=== PATIENT | female | born 1950 | race Caucasian/White ===

== ENCOUNTER 2018-09-22 13:03 | Outpatient (CLI) | payer OTHER ==
[2018-09-22 14:33] LABS: BILIRUBIN,URINE NEGATIVE (NEGATIVE); BLOOD, URINE NEGATIVE (NEGATIVE); CLARITY/URINE CLEAR (CLEAR); COLOR,URINE YELLOW (YELLOW); GLUCOSE,URINE NEGATIVE (NEGATIVE); KETONES,URINE NEGATIVE (NEGATIVE); LEUKOCYTE ESTERASE ,URINE 3+ (NEGATIVE); NITRITE, URINE NEGATIVE (NEGATIVE); PH,URINE 5.5 (5.0-8.0); PROTEIN URINE NEGATIVE (NEGATIVE); UROBILINOGEN,URINE 0.2 (0.2-1.0)
[2018-09-22 14:34] LABS: BASOPHILS # (AUTO) 0.1 K/uL (0.0-0.2); BASOPHILS % (AUTO) 0.7 % (0.0-2.0); EOSINOPHILS # (AUTO) 0.2 K/uL (0.0-0.4); EOSINOPHILS % (AUTO) 2.2 % (0.0-4.0); HEMATOCRIT 44.8 % (36-48); HEMOGLOBIN 15.2 g/dL (12.0-16.0); LYMPHOCYTES # (AUTO) 2.4 K/uL (1.0-5.5); LYMPHOCYTES % (AUTO) 26.4 % (20.5-51.5); MEAN CORPUSCULAR HEMOGLOBIN 31 pg (27-31); MEAN CORPUSCULAR HGB CONC 34 % (32-36); MEAN CORPUSCULAR VOLUME 92 fL (79.0-98.0); MONOCYTES # (AUTO) 0.5 K/uL (0.0-1.0); NEUTROPHILS # (AUTO) 5.9 K/uL (1.8-7.7); NEUTROPHILS % (AUTO) 64.7 % (40.0-70.0); PLATELET COUNT (AUTO) 294 K/uL (130-430); RED CELL DISTRIBUTION WIDTH 13.1 % (9.0-15.0); WHITE BLOOD COUNT (AUTO) 9.1 K/uL (4.8-10.8)
[2018-09-22 14:46] LABS: BACTERIA,URINE FEW /HPF (None Seen); HYALINE CASTS, URINE 0-10 /LPF (None Seen); RBC,URINE 0-3 /HPF (0-3); WBC,URINE 20-50 /HPF (0-3)
[2018-09-22 15:06] LABS: ALBUMIN 3.8 g/dL (3.4-4.8); CALCIUM 9.7 mg/dL (8.4-11.0); CREATININE 0.81 mg/dL (0.55-1.30); POTASSIUM 3.4 mmol/L (3.5-5.1); THYROID STIMULATING HORMONE 1.73 uIu/mL (0.34-4.82); TOTAL BILIRUBIN 0.6 mg/dL (0.0-1.0)
[2018-09-23 08:22] LABS: T4 (THYROXINE) 7.6 ug/dL (4.5-12.0)
[2018-09-23 13:33] LABS: HEMOGLOBIN A1C 5.9 % (4.8-5.6)
[2018-09-23 14:20] LABS: CREATININE, URINE 53.4 mg/dL; MICROALBUMIN URINE RANDOM 15.8 ug/ml (NOT ESTABLISHED)
[2018-09-23 14:21] LABS: MICROALBUMIN/CREAT RATIO, UR 29.6 MG/G CRE (0.0-30.0)
== END 2018-09-22 21:00 | disposition home or self-care (01) ==
LOC: SMA 13:03
PROVIDERS: ATTEND Family Medicine
DX: Z00.00 Encounter for general adult medical examination without abnormal findings (principal); R92.2 Inconclusive mammogram; Z13.1 Encounter for screening for diabetes mellitus; Z13.0 Encounter for screening for diseases of the blood and blood-forming organs and certain disorders involving the immune mechanism; Z13.220 Encounter for screening for lipoid disorders; Z13.9 Encounter for screening, unspecified; R00.9 Unspecified abnormalities of heart beat; Z12.11 Encounter for screening for malignant neoplasm of colon; E55.9 Vitamin D deficiency, unspecified; R73.9 Hyperglycemia, unspecified; E78.5 Hyperlipidemia, unspecified; E07.9 Disorder of thyroid, unspecified
CPT/HCPCS: 36415; 77067; 80053; 80061; 81000-TC; 82043; 82306; 82570; 83036; 84436; 84443-TC; 84480; 85025

== ENCOUNTER 2018-09-25 11:52 | Outpatient (CLI) | payer OTHER | END 2018-09-25 20:49 | disposition home or self-care (01) | LOC: SLB 11:52 | PROVIDERS: ATTEND Family Medicine | DX: Z12.11 Encounter for screening for malignant neoplasm of colon (principal); Z13.29 Encounter for screening for other suspected endocrine disorder; Z13.0 Encounter for screening for diseases of the blood and blood-forming organs and certain disorders involving the immune mechanism; Z13.220 Encounter for screening for lipoid disorders; Z13.9 Encounter for screening, unspecified; E55.9 Vitamin D deficiency, unspecified; E78.5 Hyperlipidemia, unspecified; Z79.899 Other long term (current) drug therapy | CPT/HCPCS: 82272 ==

== ENCOUNTER 2018-12-25 10:31 | Outpatient (CLI) | payer OTHER | END 2018-12-26 20:21 | disposition home or self-care (01) | LOC: SCA 10:31 | PROVIDERS: ATTEND Family Medicine | DX: I07.1 Rheumatic tricuspid insufficiency (principal); I34.0 Nonrheumatic mitral (valve) insufficiency | CPT/HCPCS: 93306 ==

== ENCOUNTER 2019-09-22 14:35 | Emergency (ER) | payer OTHER ==
[~2019-09-22] VITALS: Ht 160 cm; Wt 90.7 kg
[2019-09-22 14:35] VITALS: BP_SYST 120
--- NOTE | 2019-09-22 14:35 | NUR ---
BROUGHT BACK TO BED #4 AND TRIAGED. REPORT GIVEN TO DANIKA
--- NOTE | 2019-09-22 14:42 | NUR ---
Patient to ER bed 04 to gown for evaluation. Side rails up.
--- NOTE | 2019-09-22 14:44 | NUR ---
Pt brought by self, A&Ox4, pt presents to ER with recent UTI, Pt states she was given antibiotics for UTI but she does not remember the name or how to get prescriptions, pt amulates, respirations even and unlabored, cap refill <3, afebrile, will cont to monitor.
--- NOTE | 2019-09-22 14:55 | NUR ---
ER Dr. TERRY at bedside examining patient.
--- NOTE | 2019-09-22 15:40 | NUR ---
ASSUMED CARE OF PT. PT C/O URINARY PROBLEMS. PT RESTING QUIETLY IN NO ACUTE DISTRESS.
[2019-09-22 15:42] LABS: BILIRUBIN,URINE NEGATIVE (NEGATIVE); BLOOD, URINE NEGATIVE (NEGATIVE); COLOR,URINE YELLOW (YELLOW); GLUCOSE,URINE NEGATIVE (NEGATIVE); KETONES,URINE TRACE (NEGATIVE); LEUKOCYTE ESTERASE ,URINE 2+ (NEGATIVE); NITRITE, URINE NEGATIVE (NEGATIVE); PH,URINE 5.5 (5.0-8.0); PROTEIN URINE TRACE (NEGATIVE); UROBILINOGEN,URINE 0.2 (0.2-1.0)
[2019-09-22 15:55] LABS: CLARITY/URINE HAZY (CLEAR)
[2019-09-22 16:01] LABS: BASOPHILS % (AUTO) 0.4 % (0.0-2.0); EOSINOPHILS # (AUTO) 0.1 K/uL (0.0-0.4); EOSINOPHILS % (AUTO) 1.1 % (0.0-4.0); HEMATOCRIT 51.3 % (36-48); HEMOGLOBIN 16.7 g/dL (12.0-16.0); LYMPHOCYTES # (AUTO) 1.7 K/uL (1.0-5.5); LYMPHOCYTES % (AUTO) 17.4 % (20.5-51.5); MEAN CORPUSCULAR HEMOGLOBIN 31 pg (27-31); MEAN CORPUSCULAR HGB CONC 33 % (32-36); MEAN CORPUSCULAR VOLUME 93 fL (79.0-98.0); MONOCYTES # (AUTO) 0.6 K/uL (0.0-1.0); MONOCYTES % (AUTO) 5.7 % (1.7-9.3); NEUTROPHILS # (AUTO) 7.5 K/uL (1.8-7.7); NEUTROPHILS % (AUTO) 75.4 % (40.0-70.0); PLATELET COUNT (AUTO) 313 K/uL (130-430); RED BLOOD CELL COUNT(AUTO) 5.49 MIL/uL (4.2-6.2); WHITE BLOOD COUNT (AUTO) 9.9 K/uL (4.8-10.8)
[2019-09-22 16:20] LABS: ANION GAP 7 (5-15); CALCIUM 9.9 mg/dL (8.4-11.0); CHLORIDE 100 mmol/L (98-107); CREATININE 0.99 mg/dL (0.55-1.30); GLUCOSE 158 mg/dL (70-99); POTASSIUM 4.4 mmol/L (3.5-5.1); SODIUM SERUM 137 mmol/L (136-145); UREA NITROGEN, BLOOD 21 mg/dL (8-21)
[2019-09-22 16:33] LABS: BACTERIA,URINE FEW /HPF (None Seen); RBC,URINE 0-3 /HPF (0-3)
[2019-09-22 16:35] LABS: MUCUS,URINE 1+ /LPF (None Seen); URINE AMORPHOUS URATE 2+ /HPF (None Seen)
[2019-09-22 16:37] LABS: ALANINE AMINOTRANSFERASE 96 U/L (12-78); ALBUMIN 3.5 g/dL (3.4-4.8); AMYLASE 26 U/L (0-100); ASPARTATE AMINOTRANSFERASE 84 U/L (10-37); LIPASE 118 U/L (73-393); TOTAL BILIRUBIN 0.2 mg/dL (0.0-1.0)
[2019-09-22 17:29] VITALS: BP_SYST 120
--- NOTE | 2019-09-22 17:32 | NUR ---
Patient given written and verbal discharge instructions and verbalizes understanding. DR. MARA WING MD discussed with patient the results and treatment provided. Patient in stable condition. ID arm band removed. Rx of MACROBID AND PYRIDIUM given. Patient educated on pain management and to follow up with PMD. Pain Scale 0/10. Opportunity for questions provided and answered. Medication side effect fact sheet provided.
== END 2019-09-22 17:32 | disposition home or self-care (01) ==
LOC: SED 14:35
DX: N39.0 Urinary tract infection, site not specified (principal); I10 Essential (primary) hypertension; E78.00 Pure hypercholesterolemia, unspecified; Z86.73 Personal history of transient ischemic attack (TIA), and cerebral infarction without residual deficits
CPT/HCPCS: 36415; 80053; 81000-TC; 82150-TC; 83605; 83690-TC; 85025; 85610-TC; 85730-TC; 87086; 99283

== ENCOUNTER 2019-10-01 11:17 | Emergency (ER) | payer OTHER ==
[~2019-10-01] VITALS: Ht 167.6 cm; Wt 90.7 kg
--- NOTE | 2019-10-01 11:25 | NUR ---
Patient to ER bed 03 to gown for evaluation. Side rails up.
[2019-10-01 11:26] VITALS: BP_SYST 129
--- NOTE | 2019-10-01 11:32 | NUR ---
DR. SAL AT BEDSIDE
--- NOTE | 2019-10-01 11:35 | NUR ---
PT PRESENTS WITH FEELING OF "HOT URINE" WITH SOME PAIN UPON URINATION AND FREQUENCY. RECENT UTI. LIVES AT A [facility]. AOX3, V/S STABLE
--- NOTE | 2019-10-01 11:40 | NUR ---
URINE COLLECTED AND TAKEN TO LAB
[2019-10-01 12:00] LABS: BILIRUBIN,URINE NEGATIVE (NEGATIVE); BLOOD, URINE NEGATIVE (NEGATIVE); CLARITY/URINE SL CLOUDY (CLEAR); COLOR,URINE YELLOW (YELLOW); GLUCOSE,URINE NEGATIVE (NEGATIVE); KETONES,URINE NEGATIVE (NEGATIVE); LEUKOCYTE ESTERASE ,URINE 2+ (NEGATIVE); NITRITE, URINE NEGATIVE (NEGATIVE); PH,URINE 5.5 (5.0-8.0); PROTEIN URINE NEGATIVE (NEGATIVE); UROBILINOGEN,URINE 0.2 (0.2-1.0)
[2019-10-01 12:22] LABS: BASOPHILS % (AUTO) 0.4 % (0.0-2.0); EOSINOPHILS # (AUTO) 0.1 K/uL (0.0-0.4); EOSINOPHILS % (AUTO) 0.5 % (0.0-4.0); HEMATOCRIT 51.6 % (36-48); HEMOGLOBIN 16.9 g/dL (12.0-16.0); LYMPHOCYTES % (AUTO) 18.8 % (20.5-51.5); MEAN CORPUSCULAR HEMOGLOBIN 30 pg (27-31); MEAN CORPUSCULAR HGB CONC 33 % (32-36); MEAN CORPUSCULAR VOLUME 92 fL (79.0-98.0); MONOCYTES # (AUTO) 0.6 K/uL (0.0-1.0); MONOCYTES % (AUTO) 5.6 % (1.7-9.3); NEUTROPHILS # (AUTO) 8.1 K/uL (1.8-7.7); NEUTROPHILS % (AUTO) 74.7 % (40.0-70.0); PLATELET COUNT (AUTO) 308 K/uL (130-430); WHITE BLOOD COUNT (AUTO) 10.9 K/uL (4.8-10.8)
[2019-10-01 12:25] LABS: ANION GAP 7 (5-15); CALCIUM 9.7 mg/dL (8.4-11.0); CHLORIDE 102 mmol/L (98-107); CREATININE 0.88 mg/dL (0.55-1.30); GLUCOSE 124 mg/dL (70-99); SODIUM SERUM 139 mmol/L (136-145); UREA NITROGEN, BLOOD 15 mg/dL (8-21)
[2019-10-01 12:31] LABS: ALANINE AMINOTRANSFERASE 83 U/L (12-78); ALBUMIN 3.8 g/dL (3.4-4.8); ASPARTATE AMINOTRANSFERASE 79 U/L (10-37); TOTAL BILIRUBIN 0.4 mg/dL (0.0-1.0)
[2019-10-01 12:32] LABS: BACTERIA,URINE None Seen /HPF (None Seen); RBC,URINE NONE SEEN /HPF (0-3); TRICHOMONAS,URINE None Seen /HPF (None Seen); YEAST,URINE None Seen /HPF (None Seen)
--- NOTE | 2019-10-01 13:04 | NUR ---
Patient given written and verbal discharge instructions and verbalizes understanding. ER MD discussed with patient the results and treatment provided. Patient in stable condition. ID arm band removed. Rx of KEFLEX given. Patient educated on pain management and to follow up with PMD. Pain Scale 0/10.Opportunity for questions provided and answered. Medication side effect fact sheet provided.
[2019-10-01 13:06] VITALS: BP_SYST 129
== END 2019-10-01 13:04 | disposition home or self-care (01) ==
LOC: SED 11:17
DX: N39.0 Urinary tract infection, site not specified (principal); I10 Essential (primary) hypertension; E78.00 Pure hypercholesterolemia, unspecified; Z86.73 Personal history of transient ischemic attack (TIA), and cerebral infarction without residual deficits
CPT/HCPCS: 36415; 80053; 81000-TC; 85025; 99283

== ENCOUNTER 2022-09-17 15:53 | Inpatient (IN) | payer OTHER ==
[~2022-09-17] VITALS: Ht 167.6 cm; Wt 52.2 kg
[2022-09-17 16:08] VITALS: BP_SYST 90; PULSE 135; RESP 22; TEMP 97.7; O2SAT 95
[2022-09-17] MEDS ORDERED: NS 1000 ML IV.SOLN IV ONE (16:30)
[2022-09-17 17:51] LABS: HEMATOCRIT 43.1 % (36-48); HEMOGLOBIN 14.3 g/dL (12.0-16.0); LYMPHOCYTES # (AUTO) 0.5 K/uL (1.0-5.5); LYMPHOCYTES % (AUTO) 7.2 % (20.5-51.5); MEAN CORPUSCULAR HEMOGLOBIN 30 pg (27-31); MEAN CORPUSCULAR HGB CONC 33 % (32-36); MEAN CORPUSCULAR VOLUME 92 fL (79.0-98.0); MONOCYTES # (AUTO) 0.7 K/uL (0.0-1.0); MONOCYTES % (AUTO) 9.4 % (1.7-9.3); NEUTROPHILS # (AUTO) 5.9 K/uL (1.8-7.7); NEUTROPHILS % (AUTO) 83.4 % (40.0-70.0); PLATELET COUNT (AUTO) 151 K/uL (130-430); RED BLOOD CELL COUNT(AUTO) 4.71 MIL/uL (4.2-6.2); RED CELL DISTRIBUTION WIDTH 12.9 % (9.0-15.0); WHITE BLOOD COUNT (AUTO) 7.1 K/uL (4.8-10.8)
[2022-09-17 18:21] LABS: ALANINE AMINOTRANSFERASE 13 U/L (12-78); ALBUMIN 3.2 g/dL (3.4-4.8); ASPARTATE AMINOTRANSFERASE 39 U/L (10-37); GLUCOSE 167 mg/dL (74-106); TOTAL BILIRUBIN 2.5 mg/dL (0.0-1.0); TOTAL PROTEIN, SERUM 6.4 g/dL (6.4-8.3); UREA NITROGEN, BLOOD 76 mg/dL (8-21)
[2022-09-17] MEDS ORDERED: ASPIRIN 81 MG TABLET(ECOTRIN) PO ONE (19:00)
[2022-09-17] MEDS ORDERED: NACL 0.9% 2,000 ML IV ONE (19:30)
[2022-09-17 19:52] LABS: INR 1.1 (0.8-1.2); PROTHROMBIN TIME 11.3 SECS (9.5-12.5)
[2022-09-17 20:15] LABS: POTASSIUM 4.7 mmol/L (3.5-5.1); SODIUM SERUM 143 mmol/L (136-145)
[2022-09-17 20:16] LABS: CHLORIDE 106 mmol/L (98-107)
[2022-09-17 20:22] LABS: ANION GAP 14 (5-15); CARBON DIOXIDE 23 mmol/L (23-29)
[2022-09-17] MEDS: D5/0.45 NS 1,000 ML IV SCH (22:48)
[2022-09-17 23:59] LABS: BILIRUBIN,URINE 3+ (NEGATIVE); BLOOD, URINE NEGATIVE (NEGATIVE); GLUCOSE,URINE NEGATIVE (NEGATIVE); KETONES,URINE 1+ (NEGATIVE); LEUKOCYTE ESTERASE ,URINE NEGATIVE (NEGATIVE); NITRITE, URINE POSITIVE (NEGATIVE); PH,URINE 6.5 (5.0-8.0); PROTEIN URINE 2+ (NEGATIVE)
[2022-09-18] MEDS: PANTOPRAZOLE SODIUM 40 MG/VIAL (PROTONIX) IVP SCH ×3 (00:30→21:59)
[2022-09-18 00:32] LABS: CLARITY/URINE SLIGHTLY CLOUDY (CLEAR); COLOR,URINE AMBER (YELLOW)
[2022-09-18 00:48] LABS: BACTERIA,URINE None Seen /HPF (None Seen); RBC,URINE 0-3 /HPF (0-3); WBC,URINE 0-3 /HPF (0-3)
[2022-09-18] MEDS ORDERED: OLAN5TAB3 PO (01:46)
[2022-09-18] MEDS ORDERED: ATOR10TA68 PO (01:46)
[2022-09-18] MEDS ORDERED: AMLO-138 (01:46)
[2022-09-18] MEDS ORDERED: FURO20TA4 PO (01:46)
[2022-09-18] MEDS ORDERED: METF-1069 PO (01:46)
[2022-09-18] MEDS: D5/0.45 NS 1,000 ML IV SCH ×2 (10:59→18:14)
[2022-09-18 11:57] VITALS: BP_SYST 120; PULSE 103; RESP 18; TEMP 98.3; O2SAT 100
[2022-09-18 12:00] VITALS: BP_SYST 132; PULSE 100; RESP 18; TEMP 98
[2022-09-18] MEDS ORDERED: AZTREONAM 1 GM in NS 50 ML IV ONE (12:00)
[2022-09-18 16:00] VITALS: BP_SYST 114; PULSE 94; RESP 18; TEMP 97.8; O2SAT 100
[2022-09-18] MEDS ORDERED: BISACODYL 5 MG TABLET.DR (DULCOLAX) PO ONE (17:00)
[2022-09-18] MEDS ORDERED: GOLYTELY / COLYTE SOLUTION 4 LITERS PO ONE (18:00)
[2022-09-18] MEDS ORDERED: ONDANSETRON HCL 4 MG/2 ML VIAL IVP PRN (18:30)
[2022-09-18] MEDS ORDERED: LORazepam 2 MG/ML VIAL IVP PRN (18:30)
[2022-09-18 20:00] VITALS: BP_SYST 106; PULSE 112; RESP 17; TEMP 97.4; O2SAT 97
[2022-09-18] MEDS: AZTREONAM 1 GM in NS 50 ML IV SCH (21:58)
[2022-09-19] VITALS (7 sets, daily range): BP systolic 82–110; PULSE 101–110; RESP 17–18; TEMP 97.4–98.3; O2SAT 95–99
[2022-09-19] MEDS: INSULIN REGULAR, HUMAN 100 UNITS/ML, 3 ML VIAL (humuLIN R) SUBCUT PRN ×2 (00:04→05:59)
[2022-09-19] MEDS: D5/0.45 NS 1,000 ML IV SCH ×2 (06:00→17:28)
[2022-09-19 06:21] LABS: BASOPHILS % (AUTO) 0.1 % (0.0-2.0); HEMATOCRIT 27.3 % (36-48); LYMPHOCYTES % (AUTO) 14.1 % (20.5-51.5); MEAN CORPUSCULAR HEMOGLOBIN 30 pg (27-31); MEAN CORPUSCULAR HGB CONC 33 % (32-36); MEAN CORPUSCULAR VOLUME 91 fL (79.0-98.0); MONOCYTES # (AUTO) 0.4 K/uL (0.0-1.0); MONOCYTES % (AUTO) 6.5 % (1.7-9.3); NEUTROPHILS # (AUTO) 5.4 K/uL (1.8-7.7); NEUTROPHILS % (AUTO) 79.3 % (40.0-70.0); PLATELET COUNT (AUTO) 88 K/uL (130-430); RED CELL DISTRIBUTION WIDTH 12.4 % (9.0-15.0); WHITE BLOOD COUNT (AUTO) 6.8 K/uL (4.8-10.8)
[2022-09-19 06:32] LABS: ANION GAP 9 (5-15); CARBON DIOXIDE 24 mmol/L (23-29); CHLORIDE 110 mmol/L (98-107); GLUCOSE 190 mg/dL (74-106); SODIUM SERUM 143 mmol/L (136-145)
[2022-09-19 06:33] LABS: ALANINE AMINOTRANSFERASE 4 U/L (12-78); ALBUMIN 1.9 g/dL (3.4-4.8); ASPARTATE AMINOTRANSFERASE 12 U/L (10-37); LIPASE 111 U/L (73-393); PHOSPHORUS 2.1 mg/dL (2.7-4.5); TOTAL BILIRUBIN 0.6 mg/dL (0.0-1.0); UREA NITROGEN, BLOOD 42 mg/dL (8-21)
[2022-09-19 06:41] LABS: CALCIUM 6.7 mg/dL (8.4-11.0); POTASSIUM 2.9 mmol/L (3.5-5.1)
[2022-09-19 06:56] LABS: INR 1.1 (0.8-1.2); PROTHROMBIN TIME 11.6 SECS (9.5-12.5)
[2022-09-19] MEDS: AZTREONAM 1 GM in NS 50 ML IV SCH ×2 (08:38→21:51)
[2022-09-19] MEDS: PANTOPRAZOLE SODIUM 40 MG/VIAL (PROTONIX) IVP SCH ×2 (08:38→21:51)
[2022-09-19] MEDS ORDERED: POTASSIUM CHLORIDE 40 MEQ in NS 250 ML IV ONE (09:00)
[2022-09-19] MEDS: KCL 20 mEq in 100 mL (PREMIX) 100 ML IV SCH ×2 (10:10→12:36)
[2022-09-19] MEDS ORDERED: NS 500 ML IV ONE (11:30)
[2022-09-20 02:50] VITALS: BP_SYST 106; PULSE 101; RESP 16; TEMP 97.7; O2SAT 97
[2022-09-20 05:00] LABS: EOSINOPHILS % (AUTO) 0.1 % (0.0-4.0); HEMATOCRIT 22.6 % (36-48); HEMOGLOBIN 7.6 g/dL (12.0-16.0); LYMPHOCYTES # (AUTO) 1.4 K/uL (1.0-5.5); LYMPHOCYTES % (AUTO) 21.8 % (20.5-51.5); MEAN CORPUSCULAR HEMOGLOBIN 30 pg (27-31); MEAN CORPUSCULAR HGB CONC 34 % (32-36); MEAN CORPUSCULAR VOLUME 90 fL (79.0-98.0); MONOCYTES # (AUTO) 0.3 K/uL (0.0-1.0); MONOCYTES % (AUTO) 5.3 % (1.7-9.3); NEUTROPHILS # (AUTO) 4.6 K/uL (1.8-7.7); NEUTROPHILS % (AUTO) 72.8 % (40.0-70.0); PLATELET COUNT (AUTO) 62 K/uL (130-430); RED BLOOD CELL COUNT(AUTO) 2.51 MIL/uL (4.2-6.2); RED CELL DISTRIBUTION WIDTH 12.7 % (9.0-15.0); WHITE BLOOD COUNT (AUTO) 6.4 K/uL (4.8-10.8)
[2022-09-20 05:14] LABS: ERYTHROCYTE SEDIMENTATION RATE 1 MM/HR (0-20)
[2022-09-20 05:47] LABS: ALANINE AMINOTRANSFERASE 3 U/L (12-78); ALBUMIN 1.6 g/dL (3.4-4.8); ANION GAP 6 (5-15); ASPARTATE AMINOTRANSFERASE 9 U/L (10-37); CARBON DIOXIDE 25 mmol/L (23-29); CHLORIDE 114 mmol/L (98-107); CREATININE 0.69 mg/dL (0.55-1.30); GLUCOSE 146 mg/dL (74-106); PHOSPHORUS 1.8 mg/dL (2.7-4.5); SODIUM SERUM 145 mmol/L (136-145); TOTAL BILIRUBIN 0.5 mg/dL (0.0-1.0); TOTAL PROTEIN, SERUM 3.7 g/dL (6.4-8.3); UREA NITROGEN, BLOOD 28 mg/dL (8-21)
[2022-09-20 05:51] LABS: CALCIUM 6.6 mg/dL (8.4-11.0); POTASSIUM 2.9 mmol/L (3.5-5.1)
[2022-09-20] MEDS ORDERED: CALCIUM GLUCONATE 1 GM/10 ML VIAL IVP ONE (06:30)
[2022-09-20] MEDS ORDERED: POTASSIUM CHLORIDE 40 MEQ in NS 250 ML IV ONE (06:30)
[2022-09-20] MEDS ORDERED: NS IV ONE (07:15)
[2022-09-20] MEDS ORDERED: CALCIUM GLUCONATE IV ONE (07:15)
[2022-09-20 08:00] VITALS: O2SAT 97
[2022-09-20 08:06] LABS: FERRITIN 1156 ng/mL (15-150)
[2022-09-20] MEDS: AZTREONAM 1 GM in NS 50 ML IV SCH (09:00)
[2022-09-20 12:00] VITALS: BP_SYST 102; PULSE 100; RESP 16; TEMP 98; O2SAT 97
[2022-09-20 12:08] VITALS: BP_SYST 102; PULSE 100; RESP 16; TEMP 98; O2SAT 97
[2022-09-20 16:00] VITALS: BP_SYST 95; BP_SYST 99; PULSE 83; PULSE 96; RESP 16; TEMP 97.6; TEMP 97.8; O2SAT 100; O2SAT 99
[2022-09-20] MEDS: PANTOPRAZOLE SODIUM 40 MG/VIAL (PROTONIX) IVP SCH (18:23)
[2022-09-20] MEDS: D5/0.45 NS 1,000 ML IV SCH ×2 (18:44)
[2022-09-20 20:00] VITALS: BP_SYST 101; PULSE 98; RESP 18; TEMP 97.8; O2SAT 97; O2SAT 98
[2022-09-21] VITALS: BP_SYST 103; PULSE 92; RESP 19; TEMP 97.3; O2SAT 98
[2022-09-21] MEDS: AZTREONAM 1 GM in NS 50 ML IV SCH ×3 (02:43→23:08)
[2022-09-21] MEDS: D5/0.45 NS 1,000 ML IV SCH (05:22)
[2022-09-21 07:02] LABS: BASOPHILS % (AUTO) 0.3 % (0.0-2.0); EOSINOPHILS % (AUTO) 0.5 % (0.0-4.0); HEMATOCRIT 26.1 % (36-48); HEMOGLOBIN 8.6 g/dL (12.0-16.0); LYMPHOCYTES # (AUTO) 1.6 K/uL (1.0-5.5); LYMPHOCYTES % (AUTO) 22.5 % (20.5-51.5); MEAN CORPUSCULAR HEMOGLOBIN 30 pg (27-31); MEAN CORPUSCULAR HGB CONC 33 % (32-36); MEAN CORPUSCULAR VOLUME 91 fL (79.0-98.0); MONOCYTES # (AUTO) 0.5 K/uL (0.0-1.0); MONOCYTES % (AUTO) 7.1 % (1.7-9.3); NEUTROPHILS % (AUTO) 69.6 % (40.0-70.0); PLATELET COUNT (AUTO) 56 K/uL (130-430); RED BLOOD CELL COUNT(AUTO) 2.85 MIL/uL (4.2-6.2); RED CELL DISTRIBUTION WIDTH 12.8 % (9.0-15.0); WHITE BLOOD COUNT (AUTO) 7.2 K/uL (4.8-10.8)
[2022-09-21 07:18] LABS: ERYTHROCYTE SEDIMENTATION RATE 2 MM/HR (0-20)
[2022-09-21 07:25] LABS: ANION GAP -12 (5-15); CHLORIDE 112 mmol/L (98-107); CREATININE 0.63 mg/dL (0.55-1.30); GLUCOSE 112 mg/dL (74-106); PHOSPHORUS 1.9 mg/dL (2.7-4.5); SODIUM SERUM 143 mmol/L (136-145); UREA NITROGEN, BLOOD 16 mg/dL (8-21)
[2022-09-21 07:28] LABS: CARBON DIOXIDE 43 mmol/L (23-29); POTASSIUM 2.8 mmol/L (3.5-5.1)
[2022-09-21 08:00] VITALS: BP_SYST 108; PULSE 105; RESP 16; TEMP 97.9; O2SAT 99
[2022-09-21 09:00] VITALS: O2SAT 99
[2022-09-21] MEDS ORDERED: POTASSIUM CHLORIDE 20 MEQ TAB.PRT.SR PO ONE ×2 (13:30→14:00)
[2022-09-21 14:29] VITALS: BP_SYST 108; PULSE 105; RESP 16; TEMP 97.9; O2SAT 99
[2022-09-21] MEDS ORDERED: MAGNESIUM SULFATE 50 ML IV ONE (16:30)
[2022-09-21] MEDS ORDERED: K PHOS 30 MM in NS 250 ML IV ONE (17:00)
[2022-09-21 20:15] VITALS: BP_SYST 102; PULSE 110; RESP 19; TEMP 98.7; O2SAT 99
[2022-09-21] MEDS: PANTOPRAZOLE SODIUM 40 MG/VIAL (PROTONIX) IVP SCH (20:36)
[2022-09-21] MEDS: NORMAL SALINE 5 ML DISP.SYRIN IVF SCH (23:08)
[2022-09-22 00:39] VITALS: BP_SYST 97; PULSE 96; RESP 16; TEMP 96.3; O2SAT 95
[2022-09-22] MEDS: NORMAL SALINE 5 ML DISP.SYRIN IVF SCH ×3 (05:59→20:59)
[2022-09-22 07:43] LABS: BASOPHILS % (AUTO) 0.4 % (0.0-2.0); EOSINOPHILS # (AUTO) 0.1 K/uL (0.0-0.4); EOSINOPHILS % (AUTO) 0.9 % (0.0-4.0); HEMATOCRIT 23.1 % (36-48); HEMOGLOBIN 7.7 g/dL (12.0-16.0); LYMPHOCYTES # (AUTO) 1.1 K/uL (1.0-5.5); LYMPHOCYTES % (AUTO) 15.5 % (20.5-51.5); MEAN CORPUSCULAR HEMOGLOBIN 30 pg (27-31); MEAN CORPUSCULAR HGB CONC 34 % (32-36); MEAN CORPUSCULAR VOLUME 90 fL (79.0-98.0); MONOCYTES # (AUTO) 0.6 K/uL (0.0-1.0); MONOCYTES % (AUTO) 8.1 % (1.7-9.3); NEUTROPHILS # (AUTO) 5.5 K/uL (1.8-7.7); NEUTROPHILS % (AUTO) 75.1 % (40.0-70.0); RED BLOOD CELL COUNT(AUTO) 2.56 MIL/uL (4.2-6.2); RED CELL DISTRIBUTION WIDTH 12.9 % (9.0-15.0); WHITE BLOOD COUNT (AUTO) 7.3 K/uL (4.8-10.8)
[2022-09-22 07:52] LABS: PLATELET COUNT (AUTO) 45 K/uL (130-430)
[2022-09-22 07:56] LABS: ERYTHROCYTE SEDIMENTATION RATE 3 MM/HR (0-20)
[2022-09-22 07:57] LABS: ANION GAP 8 (5-15); CARBON DIOXIDE 22 mmol/L (23-29); CHLORIDE 112 mmol/L (98-107); CREATININE 0.54 mg/dL (0.55-1.30); GLUCOSE 94 mg/dL (74-106); PHOSPHORUS 3.8 mg/dL (2.7-4.5); SODIUM SERUM 142 mmol/L (136-145); UREA NITROGEN, BLOOD 8 mg/dL (8-21)
[2022-09-22 08:00] VITALS: BP_SYST 101; PULSE 102; RESP 16; TEMP 97.1; O2SAT 100
[2022-09-22 08:02] LABS: POTASSIUM 2.8 mmol/L (3.5-5.1)
[2022-09-22 08:03] LABS: CALCIUM 6.6 mg/dL (8.4-11.0)
[2022-09-22] MEDS: AZTREONAM 1 GM in NS 50 ML IV SCH (08:42)
[2022-09-22] MEDS: PANTOPRAZOLE SODIUM 40 MG/VIAL (PROTONIX) IVP SCH ×2 (08:55→20:58)
[2022-09-22] MEDS ORDERED: CALCIUM GLUCONATE 1 GM/10 ML VIAL IVP ONE (10:30)
[2022-09-22] MEDS ORDERED: POTASSIUM CHLORIDE 20 mEq in 100 mL (PREMIX) 100 ML x 2 doses IV SCH (10:45)
[2022-09-22] MEDS ORDERED: KCL 40 mEq in 100 mL (PREMIX) 100 ML IV ONE (10:45)
[2022-09-22] MEDS ORDERED: CALCIUM GLUCONATE 2 GM in NS 100 ML IV ONE (11:00)
[2022-09-22 12:00] VITALS: BP_SYST 97; PULSE 106; RESP 16; TEMP 97.6; O2SAT 96
[2022-09-22] MEDS: ACETAMINOPHEN 325 MG TABLET PO PRN ×2 (12:46→18:46)
[2022-09-22 15:27] VITALS: BP_SYST 122; PULSE 110; RESP 16; TEMP 98; O2SAT 94
[2022-09-22] MEDS ORDERED: POTASSIUM CHLORIDE 40 MEQ in NS 250 ML IV ONE (15:45)
[2022-09-22] MEDS: POTASSIUM CHLORIDE 20 mEq in 100 mL (PREMIX) 100 ML x 2 doses IV SCH ×2 (16:00→18:48)
[2022-09-22] MEDS ORDERED: CALCIUM GLUC 2 GM/100ML-NACL 100 ML IV ONE (16:00)
[2022-09-22 20:00] VITALS: BP_SYST 103; PULSE 112; RESP 18; TEMP 97.2; O2SAT 95
[2022-09-22] MEDS: CALCIUM 500 MG/TAB PO SCH (20:57)
[2022-09-22] MEDS: POTASSIUM CHLORIDE 20 MEQ TAB.PRT.SR PO SCH (20:58)
[2022-09-22] MEDS ORDERED: CALCIUM CARBONATE 650 MG TABLET PO SCH (21:00)
[2022-09-23] VITALS: BP_SYST 94; PULSE 113; RESP 16; TEMP 98; O2SAT 96
[2022-09-23] MEDS: ACETAMINOPHEN 325 MG TABLET PO PRN ×4 (01:01→18:54)
[2022-09-23 05:15] LABS: BASOPHILS % (AUTO) 0.1 % (0.0-2.0); EOSINOPHILS % (AUTO) 0.1 % (0.0-4.0); HEMATOCRIT 23.5 % (36-48); HEMOGLOBIN 7.9 g/dL (12.0-16.0); LYMPHOCYTES # (AUTO) 0.6 K/uL (1.0-5.5); LYMPHOCYTES % (AUTO) 7.6 % (20.5-51.5); MEAN CORPUSCULAR HEMOGLOBIN 30 pg (27-31); MEAN CORPUSCULAR HGB CONC 34 % (32-36); MEAN CORPUSCULAR VOLUME 89 fL (79.0-98.0); MONOCYTES # (AUTO) 0.7 K/uL (0.0-1.0); MONOCYTES % (AUTO) 7.9 % (1.7-9.3); NEUTROPHILS # (AUTO) 7.1 K/uL (1.8-7.7); NEUTROPHILS % (AUTO) 84.3 % (40.0-70.0); PLATELET COUNT (AUTO) 70 K/uL (130-430); RED BLOOD CELL COUNT(AUTO) 2.65 MIL/uL (4.2-6.2); RED CELL DISTRIBUTION WIDTH 12.8 % (9.0-15.0); WHITE BLOOD COUNT (AUTO) 8.4 K/uL (4.8-10.8)
[2022-09-23 06:02] LABS: ERYTHROCYTE SEDIMENTATION RATE 6 MM/HR (0-20)
[2022-09-23 06:22] LABS: ALBUMIN 1.7 g/dL (3.4-4.8); ANION GAP 10 (5-15); ASPARTATE AMINOTRANSFERASE 17 U/L (10-37); CARBON DIOXIDE 22 mmol/L (23-29); CHLORIDE 117 mmol/L (98-107); CREATININE 0.69 mg/dL (0.55-1.30); GLUCOSE 110 mg/dL (74-106); PHOSPHORUS 2.8 mg/dL (2.7-4.5); SODIUM SERUM 149 mmol/L (136-145); TOTAL BILIRUBIN 0.4 mg/dL (0.0-1.0); TOTAL PROTEIN, SERUM 4.3 g/dL (6.4-8.3); UREA NITROGEN, BLOOD 11 mg/dL (8-21)
[2022-09-23 06:27] LABS: ALANINE AMINOTRANSFERASE < 5 U/L (12-78)
[2022-09-23] MEDS: NORMAL SALINE 5 ML DISP.SYRIN IVF SCH ×2 (06:39→18:52)
[2022-09-23 08:39] VITALS: BP_SYST 102; PULSE 114; RESP 16; TEMP 98.1; O2SAT 95
[2022-09-23 09:06] LABS: ANTI-SMOOTH MUSCLE AB 5 Units (0-19)
[2022-09-23] MEDS: CALCIUM 500 MG/TAB PO SCH (09:11)
[2022-09-23] MEDS: POTASSIUM CHLORIDE 20 MEQ TAB.PRT.SR PO SCH (09:11)
[2022-09-23] MEDS: PANTOPRAZOLE SODIUM 40 MG/VIAL (PROTONIX) IVP SCH (09:12)
[2022-09-23 11:30] VITALS: BP_SYST 98; PULSE 113; RESP 18; TEMP 98.5; O2SAT 96
[2022-09-23 13:06] LABS: ATYPICAL pANCA <1:20 titer (Neg:<1:20); CYTOPLASMIC (C-ANCA) <1:20 titer (Neg:<1:20); CYTOPLASMIC (P-ANCA) <1:20 titer (Neg:<1:20)
[2022-09-23] MEDS ORDERED: SPIR25TA PO (13:35)
[2022-09-23 17:20] VITALS: BP_SYST 125; PULSE 118; RESP 19; TEMP 98.4; O2SAT 97
[2022-09-23 17:43] VITALS: BP_SYST 125; PULSE 112; RESP 16; TEMP 98.4; O2SAT 97
== END 2022-09-23 19:00 | DRG 682 ==
LOC: SED 15:53 → STU 20:03 → SMU 09-20 11:08
PROVIDERS: ADMIT Specialist; ATTEND Specialist
DX: N17.0 Acute kidney failure with tubular necrosis (principal); E43 Unspecified severe protein-calorie malnutrition; K92.2 Gastrointestinal hemorrhage, unspecified; J44.1 Chronic obstructive pulmonary disease with (acute) exacerbation; E87.20 Acidosis, unspecified; R31.9 Hematuria, unspecified; E11.65 Type 2 diabetes mellitus with hyperglycemia; D64.9 Anemia, unspecified; E83.51 Hypocalcemia; E83.42 Hypomagnesemia; E83.39 Other disorders of phosphorus metabolism; E88.09 Other disorders of plasma-protein metabolism, not elsewhere classified; D69.6 Thrombocytopenia, unspecified; R79.89 Other specified abnormal findings of blood chemistry; F32.A Depression, unspecified; I25.10 Atherosclerotic heart disease of native coronary artery without angina pectoris; E87.6 Hypokalemia; E78.00 Pure hypercholesterolemia, unspecified; K59.00 Constipation, unspecified; J44.9 Chronic obstructive pulmonary disease, unspecified; I48.91 Unspecified atrial fibrillation; E78.5 Hyperlipidemia, unspecified; I10 Essential (primary) hypertension; Z88.0 Allergy status to penicillin; Z79.899 Other long term (current) drug therapy; Z79.01 Long term (current) use of anticoagulants; Z80.9 Family history of malignant neoplasm, unspecified; Z87.891 Personal history of nicotine dependence
CPT/HCPCS: 36415; 71045; 76770; 80048; 80053; 81000; 82728; 82962; 83516; 83605; 83690; 83735; 84100; 84484; 85025; 85610-TC; 85651-TC; 85730-TC; 86256; 87040; 87086; 87230-TC; 93005; 93306; 96365; 97110-GP; 97163-GP; 97530-GP; 99291; C9113; G0378; J0610; J1815; J1956; J3475; J3480; J3490; J7030; J7040; J7050